=== PATIENT | female | born 2000 | race Two or more races ===

== ENCOUNTER 2025-03-08 08:45 | Outpatient (RCR) | payer MEDICARE, MEDICAID, SELFPAY ==
[2025-03-07 08:28] LABS: HCG Qualitative,Urine Negative
--- NOTE | 2025-03-07 09:00 | XR_ITS ---
EXAM: NM thyroid INDICATION: Nontoxic single thyroid nodule. TECHNIQUE: After oral administration of 286 uCi of Iodine-123, thyroid scan and uptake were performed at 24 hours post administration. COMPARISON/CORRELATION: Noncontrast CT cervical spine 12/05/2023. FINDINGS: Homogenous uptake of radiotracer by the thyroid gland. No evidence for hot or cold nodules. 24 hrs uptake was calculated at 21.8% and is normal (Normal range = 10-36%). Differential uptake includes 12.1% for the right thyroid lobe and 9.6% for the left thyroid lobe. IMPRESSION: Diffuse thyroid uptake without evidence for hyperfunctioning or hypofunctioning nodules. 24 hours thyroid uptake is 21.8%.
== END 2025-03-13 23:59 | disposition home or self-care (01) ==
LOC: SNUC 08:45
PROVIDERS: PCP Nurse Practitioner Family; Referring Provider Nurse Practitioner Family; Visit Provider Nurse Practitioner Family
DX: E04.1 Nontoxic single thyroid nodule (principal); Z32.00 Encounter for pregnancy test, result unknown
CPT/HCPCS: 78013; 81025; A9516